=== PATIENT | female | born 1995 | race Caucasian/White ===

== ENCOUNTER 2021-01-23 02:09 | Emergency (ER) | payer SELFPAY ==
--- NOTE | ~2021-01-23 | XR_ITS ---
EXAMINATION: XR chest 2V DATE: 01/23/2021 03:22 INDICATION: Dizziness. TECHNIQUE: Frontal and lateral views of the chest were obtained. COMPARISON: None. FINDINGS: The chest demonstrates clear lungs without pneumonia, pleural effusion, or pneumothorax. Th e heart size is normal. There are changes of posterior fusion procedure in thoracolumbar spine. IMPRESSION: 1. No acute cardiopulmonary disease. Reviewed, dictated and finalized at location A. R EQUIPMENT INSTALLER
[2021-01-23 02:15] VITALS: BP 137/78; PULSE 119; RESP 14; O2SAT 100
[2021-01-23 02:22] VITALS: BP 137/78; PULSE 99; RESP 19; TEMP 36.7; O2SAT 100
--- NOTE | 2021-01-23 02:34 | ECG_ITS ---
Measurements Intervals [place] Rate: 104 P: 76 VA: 150 QRS: 5 QRSD: 101 T: 32 QT: 338 QTc: 446 Interpretive Statements SINUS TACHYCARDIA BORDERLINE ECG Electronically Signed On 01-23-2021 6:52:14 FLAP MAKER by Vaibhav Scanlon D.O.
--- NOTE | 2021-01-23 02:45 | ED.GENADULT ---
HPI - General Adult General Chief complaint: Alcohol Stated complaint: alcohol poisoning Time Seen by Provider: 01/23/21 02:33 Source: patient Mode of arrival: ambulatory Limitations: no limitations History of Present Illness HPI narrative: Patient is a 26-year-old female complaining of nausea and not feeling right , feeling anxious, an hour after smoking marijuana tonight. Patient states she usually smokes marijuana occasionally with no problems. Patient does admit to drinking alcohol last night. Patient denies any other drug use. Patient denies any headache, dizziness, speech or visual disturbance, weakness, numbness, chest pain, shortness of breath, abdominal pain, nausea, vomiting, diarrhea, fever or chills. Related Data Allergies Allergy/AdvReac Type Severity Reaction Status Date / Time No Known Allergies Allergy Verified 01/23/21 02:50 Review of Systems Review of Systems: All systems reviewed & are unremarkable except as noted in HPI and below Constitutional: Constitutional: Denies body ache(s), Denies chills, Denies excessive sweating, Denies fatigue, Denies fever(s), Denies headache(s), Denies lethargy, Denies malaise, Denies weakness and Denies weight loss Eyes: Eyes: Denies blurry vision, Denies change in vision and Denies loss of vision ENT: Denies dizziness, Denies ear discharge, Denies headache(s), Denies lip swelling, Denies epistaxis, Denies nasal congestion, Denies neck pain, Denies throat swelling and Denies tongue swelling Cardiovascular: Cardiovascular: Denies chest pain, Denies chest pain at rest, Denies chest pain with activity, Denies diaphoresis, Denies rapid heart rate, Denies edema, Denies irregular heart rhythm, Denies lightheadedness, Denies palpitations, Denies dyspnea and Denies dyspnea on exertion Respiratory: Respiratory: Denies chest congestion, Denies cough, Denies hemoptysis, Denies dyspnea and Denies dyspnea on exertion Gastrointestinal: Gastrointestinal: Denies abdominal pain, Denies melena, Denies hematochezia, Denies diarrhea, Denies vomiting and Denies hematemesis Musculoskeletal: Musculoskeletal: Denies abnormal gait, Denies deformity, Denies joint swelling, Denies limited range of motion, Denies neck pain and Denies numbness Neurologic: Denies Abnormal speech present, Denies abnormal gait, Denies confusion, Denies dizziness, Denies headache(s), Denies focal weakness, Denies loss of vision, Denies numbness, Denies Other visual disturbances, Denies Sensory deficit (Neuro) and Denies weakness Psychiatric: Psychiatric: Denies confusion, Denies depression, Denies auditory hallucinations, Denies homicidal ideation and Denies suicidal ideation Endocrine: Endocrine: Denies cold intolerance, Denies excessive sweating, Denies fatigue, Denies heat intolerance and Denies palpitations Hematologic/Lymphatic: Hematologic/Lymphatic: Denies easy bleeding and Denies easy bruising Allergic/Immunologic: Allergic/Immunologic: Denies lip swelling, Denies throat swelling and Denies tongue swelling [facility] Social History Social History Gender identity (if verbalized by the patient): Female Exam Const: General: cooperative, healthy appearing, comfortable, no acute distress, well developed, alert and awake; No confusion Orientation/consciousness: oriented to person, oriented to place, oriented to time, patient oriented x3 and No confusion Limitations: no limitations HENMT: Head: normal to inspection, normocephalic and atraumatic Ears: hearing grossly normal bilaterally, TM normal on the right and TM normal on the left General nose exam: Normal external nose present, Normal nares present and No nasal discharge present Face and sinus: normal facial exam Mouth: Yes Normal oral and palatal mucosa present, Yes lip normal, Yes tongue normal and Yes oropharynx normal Throat: posterior oropharynx normal, tonsils normal and uvula midline Eyes: General: appeara
[2021-01-23 02:50] LABS: Basophils Percent Auto 0.3 % (0.2-1.2); Eosinophils Percent Auto 0.5 % (0-4.4); Hematocrit 38.2 % (37.0-47.0); Hemoglobin 12.7 g/dL (12.0-15.0); Immature Granulocyte Absolute 0.01 K/mm3 (0.00-0.031); Immature Granulocyte Percent A 0.1 % (0-0.5); Lymphocytes Absolute Auto 2.44 K/mm3 (0.9-3.2); Lymphocytes Percent Auto 33.1 % (18.3-44.2); Mean Corpuscular HGB Conc 33.2 g/dl (32-36); Mean Corpuscular Volume 90.3 fl (80-100); Mean Platelet Volume 9.1 fl (7.4-10.4); Monocytes Absolute Auto 0.9 K/mm3 (0.1-0.6); Monocytes Percent Auto 11.8 % (2.6-8.5); Neutrophils Percent Auto 54.2 % (45.5-73.1); Platelet Count Result 300 k/mm3 (150-375); Red Blood Count 4.23 M/mm3 (4.2-5.4); Red Cell Distribution Width 13.6 % (11.5-14.5); White Blood Count 7.4 K/mm3 (4.5-10.0)
[2021-01-23 03:04] VITALS: BP 115/71; PULSE 104; RESP 20; O2SAT 97
[2021-01-23 03:28] LABS: Alanine Aminotransferase 13 U/L (4-35); Albumin Level 4.1 g/dL (3.5-5.1); Alkaline Phosphatase 40 U/L (38-126); Anion Gap 6 mmol/L (8-16); Aspartate Amino Transferase 22 U/L (14-36); Bilirubin,Total 0.4 mg/dL (0.2-1.3); Blood Urea Nitrogen 18 mg/dL (7-17); Calcium 8.8 mg/dL (8.4-10.2); Carbon Dioxide 26 mmol/L (22-30); Chloride 104 mmol/L (98-107); Estimated Glomerular Filt Rate > 60; Glucose 116 mg/dL (65-105); Potassium 3.1 mmol/L (3.4-5.0); Sodium 136 mmol/L (137-145)
--- NOTE | 2021-01-23 03:39 | PC.NURSE ---
Pt. states she is on her period and does not have a tampon in. Pt. refusing to provided urine sample.
[2021-01-23 04:00] VITALS: BP 110/81; PULSE 87; RESP 19; O2SAT 97
[2021-01-23] MEDS: POTASSIUM CHLORIDE 20 MEQ PACKET (FOR LIQUID) 40 MEQ PO (04:00)
== END 2021-01-23 04:00 | disposition home or self-care (01) ==
PROVIDERS: Emergency Provider Emergency Medicine; PCP Nurse Practitioner Family
DX: R11.0 Nausea (principal); Z72.89 Other problems related to lifestyle; F12.10 Cannabis abuse, uncomplicated; R00.0 Tachycardia, unspecified
CPT/HCPCS: 36415; 71046; 80053; 85025; 93005; 99283; A9270

== ENCOUNTER 2024-01-02 22:23 | Inpatient (IN) | payer SELFPAY ==
--- NOTE | ~2024-01-02 | XR_ITS ---
EXAMINATION: XR retrograde pyelo w/stent LT DATE: 01/03/2024 08:32 INDICATION: Left ureteral stone. TECHNIQUE: 37 intraoperative fluoroscopic views of the abdomen and pelvis were obtained. I was not pr esent. Fluoroscopy exposure time was 50 seconds. COMPARISON: CT abdomen and pelvis 01/03/2024 FINDINGS: The left-sided retrograde pyelogram demonstrates mild hydronephrosis. The final images demo nstrate a left internal ureteral stent in expected position. There are changes of posterior fusion pr ocedure in thoracic lumbar spine. IMPRESSION: 1. Mild left hydronephrosis. 2. Left internal ureteral stent in expected position. Reviewed, dictated and finalized at location A. R FORENSIC SPECIALIST
--- NOTE | ~2024-01-02 | CT_ITS ---
EXAMINATION: CT abdomen pelvis w con INDICATION: Left flank pain, known UTI TECHNIQUE: Computed tomographic images of the abdomen and pelvis were obtained after the administrati on of 100 cc of Omnipaque 350 intravenous contrast. The dose-length product (DLP) was 201.96 mGy-cm. Automated exposure control and iterative reconstruction technique were employed. COMPARISON: None available FINDINGS: Minimal dependent atelectasis is present in the lung bases. The heart size is normal. Strea k artifact from posterior thoracolumbar fusion slightly limits the examination. The liver, pancreas, gallbladder, and adrenal glands are normal. There is a 1.6 cm cyst of the spleen. There is a 5 mm x 8 mm stone of the proximal left ureter causing moderate left hydronephrosis. There is urothelial enhan cement of the left renal pelvis and proximal ureter. There is decreased enhancement of the left kidne y compared to the right. Hyperattenuating material in the right kidney appears to reflect a small lanny unt excreted contrast rather than nephrolithiasis. No pathologically enlarged abdominal or pelvic lym ph nodes are identified. No free intraperitoneal gas or evidence of bowel obstruction. IMPRESSION: 1. 8mm x 5 mm stone of the proximal left ureter causing moderate hydronephrosis. Urothelial enhanceme nt of the left renal pelvis and proximal ureter suggests superimposed infection. Decreased enhancemen t of the left kidney compared to the right could reflect pyelonephritis or be due to ureteral obstruc tion. Reviewed, dictated and finalized at location F. E ADJUSTER IMPRESSION: 1. 8mm x 5 mm stone of the proximal left ureter causing moderate hydronephrosis . Urothelial enhancement of the left renal pelvis and proximal ureter suggests superimposed infection. Decreased enhancement of the left kidney compared to th e right could reflect pyelonephritis or be due to ureteral obstruction.
[2024-01-02 22:49] VITALS: BP 122/85; PULSE 124; RESP 20; TEMP 36.9; O2SAT 100
[2024-01-03] VITALS (23 sets, daily range): BP systolic 68–132; BP diastolic 38–80; PULSE 80–138; RESP 16–26; TEMP 36.2–39.2; O2SAT 94–100
[2024-01-03 02:47] LABS: Basophils Percent Auto 0.2 % (0.2-1.2); Eosinophils Percent Auto 0.1 % (0-4.4); Hematocrit 39.8 % (37.0-47.0); Hemoglobin 12.7 g/dL (12.0-15.0); Immature Granulocyte Absolute 0.04 K/mm3 (0.00-0.031); Immature Granulocyte Percent A 0.3 % (0-0.5); Lymphocytes Absolute Auto 0.54 K/mm3 (0.9-3.2); Lymphocytes Percent Auto 4.6 % (18.3-44.2); Mean Corpuscular HGB Conc 31.9 g/dl (32-36); Mean Corpuscular Hemoglobin 28.9 pg (26-34); Mean Corpuscular Volume 90.7 fl (80-100); Mean Platelet Volume 9.3 fl (7.4-10.4); Monocytes Absolute Auto 1.5 K/mm3 (0.1-0.6); Monocytes Percent Auto 12.4 % (2.6-8.5); Neutrophils Absolute Auto 9.7 K/mm3 (1.3-6.7); Neutrophils Percent Auto 82.4 % (45.5-73.1); Platelet Count Result 257 k/mm3 (150-375); Red Blood Count 4.39 M/mm3 (4.2-5.4); Red Cell Distribution Width 13.1 % (11.5-14.5); White Blood Count 11.8 K/mm3 (4.5-10.0)
[2024-01-03 02:59] LABS: Alanine Aminotransferase 17 U/L (6-35); Alkaline Phosphatase 69 U/L (38-126); Anion Gap 20 mmol/L (8-16); Aspartate Amino Transferase 28 U/L (14-36); Bilirubin,Total 1.1 mg/dL (0.2-1.3); Blood Urea Nitrogen 18 mg/dL (7-17); Calcium 9.5 mg/dL (8.4-10.2); Carbon Dioxide 11 mmol/L (22-30); Chloride 100 mmol/L (98-107); Estimated CRCL calculation 44 ml/min; Estimated Glomerular Filt Rate 45; Glucose 88 mg/dL (65-110); Potassium 3.8 mmol/L (3.4-5.0); Sodium 131 mmol/L (137-145)
[2024-01-03 03:16] LABS: Appearance Urine Clear (Clear); Bacteria Urine None Seen /hpf; Bilirubin Urine 1+ (Negative); Blood Urine 3+ (Negative); Color Urine Dark Yellow (Yellow); Glucose Urine UA Negative (Negative); Ketones Urine 4+ mg/dL (Negative); Leukocyte Esterase Ur 2+ LEU/UL (Negative); Need Manual Microscopic Reviewed; Nitrate Urine Positive (Negative); Non Pathogenic Casts 0-2; Protein Urine 1+ mg/dL (Negative); RBC Urine 21-50 /hpf (0-2); Specific Grav Ur 1.022 (1.001-1.035); Squamous Epithelial Cell Urine None seen /hpf (Few); WBC Urine 51-100 /hpf
[2024-01-03 03:17] LABS: Add Urine Microscopic? YES
[2024-01-03] MEDS: ONDANSETRON INJ 4 MG/2 ML VIAL IV PUSH (03:22)
[2024-01-03] MEDS: SODIUM CHLORIDE 0.9% IV 1,000 ML 999 ML IV CONT ×3 (03:22→21:23)
[2024-01-03] MEDS: MORPHINE SULFATE (*CRX) 4 MG/ML INJ IV PUSH ×2 (03:22→04:29)
[2024-01-03] MEDS: PROCHLORPERAZINE EDISYLATE 10 MG/2 ML VIAL IV PUSH (04:29)
[2024-01-03] MEDS: diphenhydrAMINE HCl INJ 50 MG/ML VIAL IV PUSH (04:29)
--- NOTE | 2024-01-03 06:54 | ED.GENADULT ---
HPI - General Adult General Chief complaint: Abdominal Pain Stated complaint: left flank pain Time Seen by Provider: 01/03/24 02:41 History of Present Illness HPI narrative: patient with 8-year-old female presents emergency department with chief complaint of left flank pain left lower quadrant abdominal pain patient states been going on for 2 days she was told that she had a urinary tract infection and has had some nausea and vomiting patient states she is concerned that she may have a kidney stone. Related Data Allergies Allergy/AdvReac Type Severity Reaction Status Date / Time No Known Allergies Allergy Verified 01/02/24 22:24 Review of Systems Review of Systems: A 10 system review of systems was completed on the patient and is negative except for what is stated in the HPI. Nursing and ancillary documentation was reviewed. [facility] Social History Social History Gender identity (if verbalized by the patient): Female Exam Narrative: GENERAL: Well-appearing, well-nourished, and in Mild acute pain distress. HEAD: Normocephalic, atraumatic. EYES: PERRLA and EOMI. ENT: Nares clear, no rhinorrhea or epistaxis. Mucous membranes moist. NECK: Supple. CHEST: Clear to auscultation. No respiratory distress. HEART: Regular rate and rhythm. No murmur heard. Normal peripheral pulses. ABDOMEN: Soft, nontender, nondistended, normal active bowel sounds. EXTREMITIES: Normal range of motion. No edema. SKIN: Warm, dry, no rash. NEURO: No focal deficits. Alert and oriented x3. PSYCH: Normal mood and affect. Course Vital Signs Vital signs: Vital Signs Temperature 36.9 C 01/02/24 22:49 Pulse Rate 124 H 01/02/24 22:49 Respiratory Rate 20 01/02/24 22:49 Blood Pressure 122/85 01/02/24 22:49 Pulse Oximetry 100 01/02/24 22:49 Oxygen Delivery Room Air 01/02/24 22:49 Temperature 36.9 C 01/02/24 22:49 Pulse Rate 113 H 01/03/24 05:35 Respiratory Rate 20 01/03/24 05:35 Blood Pressure 113/60 01/03/24 05:35 Pulse Oximetry 96 01/03/24 05:35 Oxygen Delivery Room Air 01/02/24 22:49 Medical Decision Making [facility] Narrative Medical decision making narrative: differential diagnosis includes UTI pyelonephritis, obstructive stone, infected stone appendicitis diverticulitis laboratory studies were obtained showed a white count of 11.8 creatinine is 1.4 urinalysis shows 50-100 white blood cells 2+ leuks CT scans shows a 8 tube by 5 mm proximal stone on the left the case was discussed with hospitalist and Urology the patient was started on Rocephin the patient will be taken to the operating room for a stent Vital Signs Vital Signs: Vital Signs Temperature 36.9 C 01/02/24 22:49 Pulse Rate 124 H 01/02/24 22:49 Respiratory Rate 20 01/02/24 22:49 Blood Pressure 122/85 01/02/24 22:49 Pulse Oximetry 100 01/02/24 22:49 Oxygen Delivery Room Air 01/02/24 22:49 Temperature 36.9 C 01/02/24 22:49 Pulse Rate 113 H 01/03/24 05:35 Respiratory Rate 20 01/03/24 05:35 Blood Pressure 113/60 01/03/24 05:35 Pulse Oximetry 96 01/03/24 05:35 Oxygen Delivery Room Air 01/02/24 22:49 Lab Data 01/03/24 02:25 01/03/24 02:25 Labs: Lab Results 01/03/24 Range/Units 02:25 WBC 11.8 H (4.5-10.0) K/mm3 RBC 4.39 (4.2-5.4) M/mm3 Hgb 12.7 (12.0-15.0) g/dL Hct 39.8 (37.0-47.0) % MCV 90.7 (80-100) fl MCH 28.9 (26-34) pg MCHC 31.9 L (32-36) g/dl RDW 13.1 (11.5-14.5) % Plt Count 257 (150-375) k/mm3 MPV 9.3 (7.4-10.4) fl Immature Gran % (Auto) 0.3 (0-0.5) % Neut % (Auto) 82.4 H (45.5-73.1) % Lymph % (Auto) 4.6 L (18.3-44.2) % [place] % (Auto) 12.4 H (2.6-8.5) % Eos % (Auto) 0.1 (0-4.4) % Baso % (Auto) 0.2 (0.2-1.2) % Lymph # (Auto) 0.54 L (0.9-3.2) K/mm3 [place] # (Auto) 1.5 H (0.1-0.6) K/mm3 Eos # (Auto) 0.0 (0-0.3) K
--- NOTE | 2024-01-03 07:11 | WPDURCON ---
Assessment and Plan Assessment and plan (1) Left ureteral stone: Code(s): N20.1 - Calculus of ureter Status: Acute (2) Hydronephrosis concurrent with and due to calculi of kidney and ureter: Code(s): N13.2 - Hydronephrosis with renal and ureteral calculous obstruction Status: Acute (3) UTI (urinary tract infection): Qualifiers: Urinary tract infection type: acute cystitis Code(s): N39.0 - Urinary tract infection, site not specified Status: Acute Plan 28 yr old female with obstructing L proximal ureteral stone with hydro and UTI. Discussed proceeding to OR this AM for cystoscopy and left stent placement to alleviate the obstruction. I explained that the stent is not permanent and she will need definitive stone surgery with one of my [employer] partners in the next few weeks once infection resolves. She understands risk of stent placement this AM including but not limited to bleeding, infection, damage to the urinary tract, stent irritation, and risks of anesthesia. She will be admitted to hospitalist for IV antibiotics and supportive care. Urine and blood cultures are pending. Urology Consult Note HPI Date Seen: 01/03/24 Requesting Physician: Татьяна Landin MD Primary Care Provider: CORPORATE INVESTIGATOR PHYSICIAN Consult Narrative Narrative: Barbie Wise is a 28 year old female who presented to ER with 2 days of left flank pain with associated nausea and vomiting. Was diagnosed with UTI and had been started on macrobid. She has a history of stones, all of which have passed spontaneously. She denies any fevers, chills, or dysuria. She is unsure about hematuria since she is on her period. No FH of stones. CT in ER shows 8 mm left proximal ureteral stone with hydro and perinephric stranding and enhancement of the left collecting system. UA appears infected. Has been started on rocephin. Review of Systems Review of Systems: 12 point review of systems was obtained. All systems are negative other than as her HPI [facility] Social History Social History Gender identity (if verbalized by the patient): Female Meds Home Medications and Allergies Allergies Allergy/AdvReac Type Severity Reaction Status Date / Time No Known Allergies Allergy Verified 01/02/24 22:24 Vital Signs Vital Signs - 24 hr 01/02/24 22:49 02/10/24 02:15 01/03/24 02:16 Temperature 36.9 C Pulse Rate 124 H 119 H 113 H Respiratory Rate 20 19 22 H Blood Pressure 122/85 129/74 132/73 Pulse Oximetry 100 99 99 Oxygen Delivery Room Air 01/03/24 03:25 01/03/24 03:31 01/03/24 03:46 Temperature Pulse Rate 108 H 105 H 111 H Respiratory Rate 18 23 H 25 H Blood Pressure 130/80 121/78 128/79 Pulse Oximetry 99 97 100 Oxygen Delivery 01/03/24 05:35 Temperature Pulse Rate 113 H Respiratory Rate 20 Blood Pressure 113/60 Pulse Oximetry 96 Oxygen Delivery Exam Narrative: 28 year old female in NAD Const: Other: NAD, A&O x 3, well nourished HENMT: Face/Nose/Sinus: Normal nares present Other: NC/AT; EOMI; hearing intact Eyes: EOM: EOMs intact bilaterally Neck: Neck: supple Resp: Effort & Inspection: normal respiratory effort Cardio: Rate: tachycardic GI: GI Palp: Yes Soft to palpation : Other: L CVAT tenderness Skin: General skin exam: normal color Neuro: General: gait normal Speech: normal speech Motor exam (neuro): 5/5 motor strength present throughout Extrem: General: normal to inspection Psych: Speech and movement: Normal speech and movement present Affect: normal affect Results Labs 01/03/24 02:25 01/03/24 02:25 Labs: Short CBC 01/03/24 Range/Units 02:25 WBC 11.8 H (4.5-10.0) K/mm3 Hgb 12.7 (12.0-15.0) g/dL Hct 39.8 (37.0-47.0) % Plt Count 257 (150-375) k/mm3 BMP 01/03/24 02:25 Sodium 131 L
[2024-01-03] MEDS: ACETAMINOPHEN 500 MG TABLET 1000 MG PO ×3 (07:33→22:53)
[2024-01-03] MEDS: LACTATED RINGERS 1,000 ML 30 ML IV CONT (07:53)
--- NOTE | 2024-01-03 07:55 | WPDANESEPPF ---
Anes - Initial Pre Proc Eval Procedure: Operation Date: 01/03/24 08:30 Proposed Procedures p Cystoscopy, Left Stent Placement(Left) - Татьяна Landin MD Date/Time: 01/03/24 07:55 Surgeon: Татьяна Landin MD Pre Op Diagnosis: left flank pain Patient Data Age: 28 Gender: F Height: 1.63 m Weight: 50.4 kg Last Vital Signs Temp 39.0 C H 01/03/24 07:33 Pulse 80 01/03/24 07:35 Resp 17 01/03/24 07:35 BP 128/61 01/03/24 07:35 Pulse Ox 99 01/03/24 07:35 O2 Del Method Room Air 01/02/24 22:49 Allergies Allergy/AdvReac Type Severity Reaction Status Date / Time No Known Allergies Allergy Verified 01/02/24 22:24 Laboratory Tests 01/03/24 02:25 WBC 11.8 H K/mm3 (4.5-10.0) RBC 4.39 M/mm3 (4.2-5.4) Hgb 12.7 g/dL (12.0-15.0) Hct 39.8 % (37.0-47.0) MCV 90.7 fl (80-100) MCH 28.9 pg (26-34) MCHC 31.9 L g/dl (32-36) RDW 13.1 % (11.5-14.5) Plt Count 257 k/mm3 (150-375) MPV 9.3 fl (7.4-10.4) Immature Gran % (Auto) 0.3 % (0-0.5) Neut % (Auto) 82.4 H % (45.5-73.1) Lymph % (Auto) 4.6 L % (18.3-44.2) [place] % (Auto) 12.4 H % (2.6-8.5) Eos % (Auto) 0.1 % (0-4.4) Baso % (Auto) 0.2 % (0.2-1.2) Lymph # (Auto) 0.54 L K/mm3 (0.9-3.2) [place] # (Auto) 1.5 H K/mm3 (0.1-0.6) Eos # (Auto) 0.0 K/mm3 (0-0.3) Baso # (Auto) 0.0 K/mm3 (0.0-0.1) Abs Immat Gran (auto) 0.04 H K/mm3 (0.00-0.031) Absolute Neuts (auto) 9.7 H K/mm3 (1.3-6.7) Absolute Nucleated RBC 0.0 K/mm3 (0.0-0.012) Nucleated RBC % 0.0 % (0.0-0.2) Sodium 131 L mmol/L (137-145) Potassium 3.8 mmol/L (3.4-5.0) Chloride 100 mmol/L (98-107) Carbon Dioxide 11 L mmol/L (22-30) Anion Gap 20 H mmol/L (8-16) BUN 18 H mg/dL (7-17) Creatinine 1.40 H mg/dL (0.7-1.0) Estim Creat Clear Calc 44 ml/min Estimated GFR 45 L (59 - ) Glucose 88 mg/dL (65-110) Calcium 9.5 mg/dL (8.4-10.2) Total Bilirubin 1.1 mg/dL (0.2-1.3) AST 28 U/L (14-36) ALT 17 U/L (6-35) Alkaline Phosphatase 69 U/L (38-126) Total Protein 9.0 H g/dL (6.3-8.2) Albumin 5.0 g/dL (3.5-5.1) Urine Color Dark yellow (Yellow) Urine Appearance Clear (Clear) Urine pH 5.0 (5.0-9.0) Ur Specific [place] 1.022 (1.001-1.035) Urine Protein 1+ H mg/dL (Negative) Urine Glucose (UA) Negative mg/dL (Negative) Urine Ketones 4+ H mg/dL (Negative) Ur Blood (Man) 3+ H (Negative) Urine Nitrate Positive H (Negative) Urine Bilirubin 1+ H (Negative) Urine Urobilinogen 1.0 mg/dL (<2.0) Add Ur Microanalysis Reviewed Leukocyte Esterase Rfl 2+ H ANNA MARIE/UL (Negative) Urine RBC 21-50 H /hpf (0-2) Urine WBC 51-100 H /hpf Ur Squamous Epith Cells None seen /hpf (Few) Urine Bacteria None seen /hpf Urine Casts 0-2 Patient hx anesthesia problems: none Family hx anesthesia problems: none Results Review: All pre-operative results and documents have been reviewed as part of the pre-operative evaluation. [facility] Past Medical History Medical History Smoker Surgical History Surgical History (Updated 01/03/24 @ 07:55 by Maurice Tejeda MD) History of lumbar surgery Social History Social History Gender identity (if verbalized by the patient): Female Anes - Eval Final PreProcedure Day of Procedure 01/03/24 07:55 Patient weight: thin Heart: regular rate and rhythm Lungs: clear to auscultation Airway: Mallampati scale class II Neurological: alert and oriented Last oral intake: >/= 8 hours ASA classification: II Emergent: no Anesthetic plan: proceed Anesthesia type and monitoring: general LMA and standard monitoring Results Review: All pre-operative results and documents have been reviewed as part of the
--- NOTE | 2024-01-03 08:36 | W.PM.PROC2 ---
Procedure Note - Detailed Date of Procedure 01/03/24 Pre-op Diagnosis left proximal ureteral stone with hydronephrosis and UTI Post-op Diagnosis Same Procedure Performed cystoscopy, left retrograde pyelogram and placement of a left 4.8cm VL stent Surgeon Татьяна Landin MD Anesthesia General and Local Findings 8 mm left proximal ureteral stone. Purulent drainage from the left kidney Description of Procedure Patient was correctly identified and informed consent was obtained. She was brought to the OR and a formal timeout was performed. General anesthesia was induced. She had already received intravenous antibiotics and was not due for redosing. She was placed in the dorsal lithotomy position, prepped and draped in a sterile fashion. A rigid cystoscope was inserted through the urethra into the bladder. The bladder was examined in a systematic fashion. There were no masses, stones or tumors. The left UO was intubated with a sensor wire. I advanced the wire up into the left kidney. I then advanced the 8fr coaxial dilator over the wire into the left kidney. There was a hydronephrotic drip of purulent fluid which was sent off as left renal pelvis urine for culture. A gentle retrograde pyelogram was performed. She was noted to have mild left hydronephrosis. A 4.8cm variable length stent was placed under a combination of fluoroscopic guidance and direct vision with a curl in the upper pole of the left kidney and another curl in the bladder. Due to the degree of infection, I elected to place a 16 fr samson catheter. She was then awaken and taken to the recovery room in a stable condition Implants 4.8 cm VL JJ stent Estimated Blood Loss 5 Drains Yes (samson catheter) Pathology Other (left renal pelvis urine for culture) Condition Stable Disposition PACU
[2024-01-03 09:19] LABS: Appearance Urine Turbid (Clear); Blood Urine 3+ (Negative); Glucose Urine UA Trace mg/dL (Negative); Ketones Urine 1+ mg/dL (Negative); Protein Urine 3+ mg/dL (Negative)
[2024-01-03 09:20] LABS: Add Urine Microscopic? YES; Bilirubin Urine 2+ (Negative); Color Urine Dark Yellow (Yellow); Leukocyte Esterase Ur 3+ LEU/UL (Negative); Nitrate Urine Positive (Negative)
[2024-01-03] MEDS: fentaNYL CITRATE INJ (*CRX) 100 MCG/2 ML VIAL 25 MCG IV PUSH (09:21)
[2024-01-03 09:28] LABS: RBC Urine 51-75 /hpf (0-2); WBC Clumps Urine Present /HPF; WBC Urine >100 /hpf
[2024-01-03 09:29] LABS: Bacteria Urine 2+ /hpf
[2024-01-03] MEDS: SODIUM CHLORIDE 0.9% IV 1,000 ML 125 ML IV CONT ×3 (09:57→20:49)
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
--- NOTE | 2024-01-03 20:06 | P.PNCROSS_ITS ---
Event Note Event Note Event Note: 01/03/2024 19:55 Subjective: Nurse contacted me with a change in patient status; patient with uncontrollable shivers. Chart reviewed. Admitted through ED overnight with obstructing ureteral stone s/p cysto with stent placement. Objective: Temperature 102, pulse 124, respiratory rate 20, blood pressure 68/43. She is ill appearing. Shivering under blankets. Skin a little warm but not hot. Slightly diaphoretic. Tachycardic. Mildly tachypneic but lungs are clear to auscultation. Aprham draining dark yellow urine. Positive left sided CVA tenderness. Bowel sounds present. No edema. A&O. Assessment: Sepsis (hypotension, tachycardia, leukocytosis, YURIY) due to infected ureteral stone and left pyelonephritis. Plan: Broaden antibiotics to meropenem, pending urine and blood cultures. 2 liter bolus now. Re-evaluate thereafter. Critical Care Time Critical Care Time: Yes Total Critical Care Time: 40 Attestation: Due to a high probability of clinically significant, life threatening deterioration, the patient required my highest level of preparedness to intervene emergently and I personally spent this critical care time directly and personally managing the patient. This critical care time included obtaining a history; examining the patient; pulse oximetry; ordering and review of studies; arranging urgent treatment with development of a management plan; evaluation of patient's response to treatment; frequent reassessment; and discussions with o ther providers. It was exclusive of separately billable procedures and treating other patients and teaching time. Please see Assessment and Plan section and the rest of the note for further information on patient assessment and treatment.
[2024-01-03] MEDS: MEROPENEM 1 GM/NS 100 ML 1 GM/100 ML BAG IVPB (20:49)
[2024-01-03 20:51] LABS: Basophils Percent Auto 0.4 % (0.2-1.2); Eosinophils Percent Auto 0.5 % (0-4.4); Hematocrit 31.4 % (37.0-47.0); Immature Granulocyte Absolute 0.03 K/mm3 (0.00-0.031); Immature Granulocyte Percent A 0.4 % (0-0.5); Lymphocytes Percent Auto 3.7 % (18.3-44.2); Mean Corpuscular HGB Conc 31.8 g/dl (32-36); Mean Corpuscular Hemoglobin 29.2 pg (26-34); Mean Corpuscular Volume 91.5 fl (80-100); Mean Platelet Volume 9.1 fl (7.4-10.4); Monocytes Absolute Auto 0.7 K/mm3 (0.1-0.6); Monocytes Percent Auto 8.5 % (2.6-8.5); Neutrophils Absolute Auto 7.1 K/mm3 (1.3-6.7); Neutrophils Percent Auto 86.5 % (45.5-73.1); Platelet Count Result 149 k/mm3 (150-375); Red Blood Count 3.43 M/mm3 (4.2-5.4); Red Cell Distribution Width 13.2 % (11.5-14.5); White Blood Count 8.2 K/mm3 (4.5-10.0)
[2024-01-03 21:11] LABS: Anisocytosis 1+ (NORMAL); Hypochromasia 1+ (NORMAL); Large Platelets Present; Ovalocytes 1+ (NORMAL); Platelet Estimate Adequate (Adequate); Schistocytes None Seen (NORMAL)
[2024-01-03 21:12] LABS: Lactic Acid Reflex 1.5 mmol/L (0.7-2.0)
[2024-01-03 21:13] LABS: Anion Gap 5 mmol/L (8-16); Blood Urea Nitrogen 13 mg/dL (7-17); Calcium 7.8 mg/dL (8.4-10.2); Carbon Dioxide 17 mmol/L (22-30); Chloride 109 mmol/L (98-107); Estimated CRCL calculation 66 ml/min; Estimated Glomerular Filt Rate > 60; Glucose 144 mg/dL (65-110); Magnesium 1.6 mg/dL (1.6-2.3); Potassium 3.9 mmol/L (3.4-5.0); Sodium 131 mmol/L (137-145)
--- NOTE | 2024-01-03 22:46 | ECG_ITS ---
Measurements Intervals [place] Rate: 125 P: 79 AL: 139 QRS: 3 QRSD: 101 T: 63 QT: 336 QTc: 485 Interpretive Statements SINUS TACHYCARDIA NONSPECIFIC T-WAVE ABNORMALITY ABNORMAL ECG COMPARED TO ECG 01/23/2021 02:44:31 T-WAVE ABNORMALITY NOW PRESENT Electronically Signed On 01-04-2024 8:20:20 SWEATER OPERATOR by Carlos Henderson M.D.
[2024-01-03] MEDS: LACTATED RINGERS 1,000 ML 999 ML IV CONT (22:55)
[2024-01-04] VITALS (16 sets, daily range): BP systolic 101–117; BP diastolic 48–82; PULSE 86–126; RESP 14–30; TEMP 36.3–39.2; O2SAT 90–99
[2024-01-04] MEDS: LACTATED RINGERS 1,000 ML 999 ML IV CONT
[2024-01-04] MEDS: LACTATED RINGERS 1,000 ML 100 ML IV CONT ×3 (00:01→21:37)
[2024-01-04] MEDS: IBUPROFEN IV 400 MG in SODIUM CHLORIDE 0.9% IV 100 ML 200 MG IVPB (00:18)
[2024-01-04 05:50] LABS: Hematocrit 30.4 % (37.0-47.0); Hemoglobin 10.1 g/dL (12.0-15.0); Mean Corpuscular HGB Conc 33.2 g/dl (32-36); Mean Corpuscular Hemoglobin 29.4 pg (26-34); Mean Corpuscular Volume 88.6 fl (80-100); Mean Platelet Volume 9.2 fl (7.4-10.4); Platelet Count Result 162 k/mm3 (150-375); Red Blood Count 3.43 M/mm3 (4.2-5.4); Red Cell Distribution Width 13.2 % (11.5-14.5); White Blood Count 5.9 K/mm3 (4.5-10.0)
[2024-01-04] MEDS: MEROPENEM 1 GM/NS 100 ML 1 GM/100 ML BAG IVPB ×3 (06:05→21:41)
[2024-01-04 06:21] LABS: Anion Gap 4 mmol/L (8-16); Blood Urea Nitrogen 11 mg/dL (7-17); Calcium 7.5 mg/dL (8.4-10.2); Carbon Dioxide 19 mmol/L (22-30); Chloride 109 mmol/L (98-107); Estimated CRCL calculation 80 ml/min; Estimated Glomerular Filt Rate > 60; Glucose 109 mg/dL (65-110); Potassium 3.3 mmol/L (3.4-5.0); Sodium 132 mmol/L (137-145)
[2024-01-04] MEDS: ONDANSETRON INJ 4 MG/2 ML VIAL IV PUSH (08:13)
--- NOTE | 2024-01-04 10:14 | WPDUROPN2 ---
Progress Note: A&P Assessment and Plan (1) Sepsis: Qualifiers: Sepsis type: sepsis due to unspecified organism Sepsis acute organ dysfunction status: without acute organ dysfunction Qualified Code(s): A41.9 - Sepsis, unspecified organism Code(s): A41.9 - Sepsis, unspecified organism Status: Acute (2) Hydronephrosis concurrent with and due to calculi of kidney and ureter: Code(s): N13.2 - Hydronephrosis with renal and ureteral calculous obstruction Status: Acute (3) Left ureteral stone: Code(s): N20.1 - Calculus of ureter Status: Acute Plan POD#1 s/p L stent placement admitted with urosepsis and obstructing L prox ureteral stone - continue meropenem; blood cultures x 2 with GNR- pending sensitivities - continue samson for now in setting of sepsis to maximize urine drainage - supportive care - will need definitive stone surgery with one of my [facility] partners in a few wks once infection resolves Subjective Subjective Date/Time Seen: 01/04/24 10:14 Interval history: Has issues with fevers overnight. Hospitalist gave her fluid bolus and broadened her abx to meropenem. States she is feeling better this AM. No flank pain. Mild SP pain. Review of Systems Review of Systems: 12 point review of systems was obtained. All systems are negative other than as her HPI Exam Narrative: 28 yr old female currently in NAD Const: General: comfortable and no acute distress HENMT: Face/Nose/Sinus: Normal nares present Eyes: General: appearance normal, both eyes and all related structures Resp: Effort & Inspection: normal respiratory effort GI: GI Palp: Yes Soft to palpation Urinary Catheter: Urinary Catheter: patent and draining and urine clear Objective Data Vital Signs Vital Signs: Vital Signs - 24 hr 01/03/24 10:16 01/03/24 11:10 01/03/24 12:10 Temperature 37.1 C 36.7 C 36.2 C L Pulse Rate 129 H 116 H 115 H Respiratory Rate 20 16 20 Blood Pressure 103/42 L 117/59 L 107/63 Pulse Oximetry 96 97 98 Oxygen Delivery 01/03/24 13:36 01/03/24 16:26 01/03/24 20:00 Temperature 36.7 C Pulse Rate 104 H Respiratory Rate 20 Blood Pressure 94/38 L Pulse Oximetry 98 96 Oxygen Delivery Room Air Room Air 01/03/24 20:00 01/03/24 22:53 01/03/24 22:59 Temperature 37.2 C 38.8 C H 38.8 C H Pulse Rate 124 H 138 H Respiratory Rate 20 20 Blood Pressure 68/43 L 105/39 L Pulse Oximetry 99 Oxygen Delivery 01/03/24 23:59 01/04/24 00:18 01/04/24 00:00 Temperature 39.2 C H 39.2 C H Pulse Rate 126 H Respiratory Rate Blood Pressure Pulse Oximetry Oxygen Delivery 01/04/24 00:58 01/04/24 00:00 01/04/24 04:00 Temperature 37.0 C 37.5 C Pulse Rate 120 H 86 Respiratory Rate 18 Blood Pressure 105/48 L Pulse Oximetry 90 Oxygen Delivery 01/04/24 04:00 01/04/24 07:59 Temperature 36.3 C L 36.8 C Pulse Rate 88 92 Respiratory Rate 14 24 H Blood Pressure 105/62 101/56 L Pulse Oximetry 92 98 Oxygen Delivery Intake/Output Intake/Output: Intake & Output 01/01/24 01/02/24 01/03/24 01/04/24 23:59 23:59 23:59 23:59 Intake Total 4060 100 Output Total 445 1300 Balance 3615 -1200 Meds/Results Medications: Active Medications Generic Name Dose Route Start Last Admin Trade Name Freq PRN Reason Stop Dose Admin Acetaminophen 1,000 mg 01/03/24 10:15 01/03/24 22:53 Acetaminophen 500 Mg Tablet PO 1,000 mg Q6H PRN Administration Mild Pain (1-3) or Fever Lactated Ringer's 1,000 mls @ 100 mls/hr 01/03/24 22:50 01/04/24 00:01 Lr - Lactated Ringers Iv IV CONT 100 mls/hr .Q10H BRANDO Administration Meropenem 1 gm in 100 mls @ 200 mls/hr 01/04/24 06:00 01/04/24 06:05 IVPB 200 mls/hr Q8HR BRANDO Administration Morphine Sulfate 4 mg 01/03/24 07:05 Morphine Sulfate (*Crx) 4 Mg/Ml Inj IV PUSH Q2H PRN Pain Rated 7-10 Ondansetron HCl 4 mg 01/03/24 07:05 0
--- NOTE | 2024-01-04 10:21 | P.PNIM_ITS ---
Progress Note: A&P Assessment and Plan (1) Sepsis: Qualifiers: Sepsis type: sepsis due to unspecified organism Sepsis acute organ dysfunction status: without acute organ dysfunction Qualified Code(s): A41.9 - Sepsis, unspecified organism Code(s): A41.9 - Sepsis, unspecified organism Status: Acute Assessment and Plan: * Not meeting septic shock * As evidenced by febrile to 102.2, tachycardic in the 120s, known source of infection being urine. Lactic acid was not performed upon patient's arrival, in treatment has already begun. * Will continue with IV antibiotics, IV hydration which she received 2 L in emergency room and will continue to monitor patient's overall status. * Sepsis caused secondary to acute dilated Pyelitis/UTI with evidence of hydronephrosis secondary to ureteral calculus obstruction. * 01/04/2024: Patient with short time frame of meeting septic shock last evening. Blood pressure dropped to 60s over 30s. She was able to rebound with IV fluid boluses. Continue changed antibiotic from Rocephin to meropenem to afford broader coverage. Continue IV fluids. See problem 2. For bacteremia. Will continue to monitor this patient her condition is currently guarded. (2) Bacteremia: Code(s): R78.81 - Bacteremia Status: Acute Assessment and Plan: * Blood cultures, 4/4 bottles growing Gram-negative bacilli. * Continue meropenem pending culture results and sensitivity. * Patient will need prolonged course of antibiotics. (3) Hydronephrosis concurrent with and due to calculi of kidney and ureter: Code(s): N13.2 - Hydronephrosis with renal and ureteral calculous obstruction Status: Acute Assessment and Plan: * As evidence prior CT scan demonstrating 8 mm proximal left ureteral stone * Status post cystoscopy with left retrograde pyelogram and placement of stent by Dr. Landin * Continue IV antibiotics of Rocephin 1 g Q 24 hours * Continue IV fluids of normal saline at 125 mL/hour * Continue to monitor results of cultures of blood and urine obtained both externally as well as intraoperatively * P.r.n. pain meds * P.r.n. antiemetics * P.r.n. Tylenol * Continue to monitor patient with trending labs and vital signs. * 01/04/2024: As noted per urology note, patient will need definitive stone surgery with 1 of the [facility] urologist in a few weeks once her acute infection resolves. In the meantime we are continuing to treat her sepsis and bacteremia antibiotics in her wheezing urine cultures as well as blood culture identification and sensitivity. We will continue antiemetics, Tylenol and p ain meds needed (4) Pyelitis: Code(s): N12 - Tubulo-interstitial nephritis, not specified as acute or chronic Status: Acute Assessment and Plan: * See plan for number 2. (5) UTI (urinary tract infection): Qualifiers: Urinary tract infection type: acute cystitis Code(s): N39.0 - Urinary tract infection, site not specified Status: Acute Assessment and Plan: * See plan for number 2 (6) Left ureteral stone: Code(s): N20.1 - Calculus of ureter Status: Acute Assessment and Plan: * Status post cystoscopy with left retrograde pyelogram and placement and left sided stents * Parham catheter is in place draining serosanguineous urine * Urology following * 01/04/2024: Patient will need definitive stone removal treatment after acute infection has resolved. Time Spent With Patient Time with patient: 25 - 35 minutes Subjective Date/time seen: 01/04/24 7538 Int
--- NOTE | 2024-01-04 10:21 | PM.IMPN ---
Progress Note: A&P Assessment and Plan (1) Sepsis: Qualifiers: Sepsis type: sepsis due to unspecified organism Sepsis acute organ dysfunction status: without acute organ dysfunction Qualified Code(s): A41.9 - Sepsis, unspecified organism Code(s): A41.9 - Sepsis, unspecified organism Status: Acute Assessment and Plan: Not meeting septic shock As evidenced by febrile to 102.2, tachycardic in the 120s, known source of infection being urine. Lactic acid was not performed upon patient's arrival, in treatment has already begun. Will continue with IV antibiotics, IV hydration which she received 2 L in emergency room and will continue to monitor patient's overall status. Sepsis caused secondary to acute dilated Pyelitis/UTI with evidence of hydronephrosis secondary to ureteral calculus obstruction. 01/04/2024: Patient with short time frame of meeting septic shock last evening. Blood pressure dropped to 60s over 30s. She was able to rebound with IV fluid boluses. Continue changed antibiotic from Rocephin to meropenem to afford broader coverage. Continue IV fluids. See problem 2. For bacteremia. Will continue to monitor this patient her condition is currently guarded. (2) Bacteremia: Code(s): R78.81 - Bacteremia Status: Acute Assessment and Plan: Blood cultures, 4/4 bottles growing Gram-negative bacilli. Continue meropenem pending culture results and sensitivity. Patient will need prolonged course of antibiotics. (3) Hydronephrosis concurrent with and due to calculi of kidney and ureter: Code(s): N13.2 - Hydronephrosis with renal and ureteral calculous obstruction Status: Acute Assessment and Plan: As evidence prior CT scan demonstrating 8 mm proximal left ureteral stone Status post cystoscopy with left retrograde pyelogram and placement of stent by Dr. Landin Continue IV antibiotics of Rocephin 1 g Q 24 hours Continue IV fluids of normal saline at 125 mL/hour Continue to monitor results of cultures of blood and urine obtained both externally as well as intraoperatively P.r.n. pain meds P.r.n. antiemetics P.r.n. Tylenol Continue to monitor patient with trending labs and vital signs. 01/04/2024: As noted per urology note, patient will need definitive stone surgery with 1 of the [facility] urologist in a few weeks once her acute infection resolves. In the meantime we are continuing to treat her sepsis and bacteremia antibiotics in her wheezing urine cultures as well as blood culture identification and sensitivity. We will continue antiemetics, Tylenol and pain meds needed (4) Pyelitis: Code(s): N12 - Tubulo-interstitial nephritis, not specified as acute or chronic Status: Acute Assessment and Plan: See plan for number 2. (5) UTI (urinary tract infection): Qualifiers: Urinary tract infection type: acute cystitis Code(s): N39.0 - Urinary tract infection, site not specified Status: Acute Assessment and Plan: See plan for number 2 (6) Left ureteral stone: Code(s): N20.1 - Calculus of ureter Status: Acute Assessment and Plan: Status post cystoscopy with left retrograde pyelogram and placement and left sided stents Parham catheter is in place draining serosanguineous urine Urology following 01/04/2024: Patient will need definitive stone removal treatment after acute infection has resolved. Time Spent With Patient Time with patient: 25 - 35 minutes Subjective Date/time seen: 01/04/24 0820 Interval history: This patient was examined at the bedside today in interval assessment after undergoing cystoscopy with retrograde exam yesterday by urology in the setting of a left-sided obstructing stone. Patient was admitted to the floor postprocedure with Parham catheter in place and meeting sepsis criteria. Throughout the evening patient continued to have febrile episodes and at 1 point develop
[2024-01-04] MEDS: ACETAMINOPHEN 500 MG TABLET 1000 MG PO ×2 (11:50→22:13)
[2024-01-04] MEDS: guaiFENesin/DEXTROMETHORPHAN 10 ML UDC 5 ML PO (22:13)
[2024-01-04] MEDS: MELATONIN 5 MG TABLET PO (23:00)
[2024-01-04] MEDS: IBUPROFEN 600 MG TABLET PO (23:13)
[2024-01-05] VITALS (9 sets, daily range): BP systolic 107–130; BP diastolic 61–78; PULSE 66–100; RESP 16–20; TEMP 36.4–37.1; O2SAT 92–96
[2024-01-05 05:42] LABS: Basophils Percent Auto 0.2 % (0.2-1.2); Eosinophils Absolute Auto 0.1 K/mm3 (0-0.3); Eosinophils Percent Auto 1.9 % (0-4.4); Hematocrit 30.2 % (37.0-47.0); Hemoglobin 9.8 g/dL (12.0-15.0); Immature Granulocyte Absolute 0.01 K/mm3 (0.00-0.031); Immature Granulocyte Percent A 0.2 % (0-0.5); Lymphocytes Absolute Auto 0.72 K/mm3 (0.9-3.2); Lymphocytes Percent Auto 17.5 % (18.3-44.2); Mean Corpuscular HGB Conc 32.5 g/dl (32-36); Mean Corpuscular Hemoglobin 28.9 pg (26-34); Mean Corpuscular Volume 89.1 fl (80-100); Mean Platelet Volume 9.9 fl (7.4-10.4); Monocytes Absolute Auto 0.6 K/mm3 (0.1-0.6); Monocytes Percent Auto 13.8 % (2.6-8.5); Neutrophils Absolute Auto 2.7 K/mm3 (1.3-6.7); Neutrophils Percent Auto 66.4 % (45.5-73.1); Platelet Count Result 175 k/mm3 (150-375); Red Blood Count 3.39 M/mm3 (4.2-5.4); Red Cell Distribution Width 13.2 % (11.5-14.5); White Blood Count 4.1 K/mm3 (4.5-10.0)
[2024-01-05 05:54] LABS: Alanine Aminotransferase 20 U/L (6-35); Albumin Level 2.4 g/dL (3.5-5.1); Alkaline Phosphatase 63 U/L (38-126); Anion Gap 4 mmol/L (8-16); Aspartate Amino Transferase 28 U/L (14-36); Bilirubin,Total 0.6 mg/dL (0.2-1.3); Blood Urea Nitrogen 7 mg/dL (7-17); Calcium 7.8 mg/dL (8.4-10.2); Carbon Dioxide 23 mmol/L (22-30); Chloride 106 mmol/L (98-107); Estimated CRCL calculation 91 ml/min; Estimated Glomerular Filt Rate > 60; Glucose 99 mg/dL (65-110); Magnesium 1.6 mg/dL (1.6-2.3); Potassium 2.9 mmol/L (3.4-5.0); Sodium 133 mmol/L (137-145)
[2024-01-05] MEDS: MEROPENEM 1 GM/NS 100 ML 1 GM/100 ML BAG IVPB ×3 (05:58→21:20)
--- NOTE | 2024-01-05 08:36 | P.PNIM_ITS ---
Progress Note: A&P Assessment and Plan (1) Sepsis: Qualifiers: Sepsis acute organ dysfunction status: without acute organ dysfunction Sepsis type: sepsis due to unspecified organism Qualified Code(s): A41.9 - S epsis, unspecified organism Code(s): A41.9 - Sepsis, unspecified organism Status: Acute Assessment and Plan: 01/03/24: * Not meeting septic shock * As evidenced by febrile to 102.2, tachycardic in the 120s, known source of infection being urine. Lactic acid was not performed upon patient's arrival, in treatment has already begun. * Will continue with IV antibiotics, IV hydration which she received 2 L in emergency room and will continue to monitor patient's overall status. * Sepsis caused secondary to acute dilated Pyelitis/UTI with evidence of hydronephrosis secondary to ureteral calculus obstruction. 01/04/2024: * Patient with short time frame of meeting septic shock last evening. Blood pressure dropped to 60s over 30s. She was able to rebound with IV fluid boluses. Continue changed antibiotic from Rocephin to meropenem to afford broader coverage. Continue IV fluids. See problem 2. For bacteremia. Will continue to monitor this patient her condition is currently guarded. 01/05/24: * Vital signs are stable today she is afebrile, currently on room air. * Continue meropenem * Blood culture showing Gram-negative bacilli on preliminary read * Will repeat blood cultures today * Urine culture showing E coli on preliminary read, awaiting sensitivities (2) Bacteremia: Code(s): R78.81 - Bacteremia Status: Acute Assessment and Plan: 01/04/24: * Blood cultures, 4/4 bottles growing Gram-negative bacilli. * Continue meropenem pending culture results and sensitivity. * Patient will need prolonged course of antibiotics. 01/05/24: * Blood culture showing Gram-negative bacilli on preliminary read * Will obtain other set of blood cultures today * Continue IV antibiotics (3) Hydronephrosis concurrent with and due to calculi of kidney and ureter: Code(s): N13.2 - Hydronephrosis with renal and ureteral calculous obstruction Status: Acute Assessment and Plan: 01/04/24: * As evidence prior CT scan demonstrating 8 mm proximal left ureteral stone * Status post cystoscopy with left retrograde pyelogram and placement of stent by Dr. Landin * Continue IV antibiotics of Rocephin 1 g Q 24 hours * Continue IV fluids of normal saline at 125 mL/hour * Continue to monitor results of cultures of blood and urine obtained both externally as well as intraoperatively * P.r.n. pain meds * P.r.n. antiemetics * P.r.n. Tylenol * Continue to monitor patient with trending labs and vital signs. 01/04/2024: * As noted per urology note, patient will need definitive stone surgery with 1 of the [facility] urologist in a few weeks once her acute infection resolves. In the meantime we are continuing to treat her sepsis and bacteremia antibiotics in her wheezing urine cultures as well as blood culture identification and sensitivity. We will continue antiemetics, Tylenol and pain meds needed. 01/05/24: * Urology following * Awaiting culture results and sensitivities * Continue meropenem * Obtaining new blood cultures today (4) Pyelitis: Code(s): N12 - Tubulo-interstitial nephritis, not specified as acute or chronic Status: Acute Assessment and Plan: 01/04/24: * see above plan (5) UTI (urinary tract infection): Qualifiers: Urinary tract infection type: acute cystitis Code(s): N39.0 - Urinary tra
--- NOTE | 2024-01-05 08:36 | PM.IMPN ---
Progress Note: A&P Assessment and Plan (1) Sepsis: Qualifiers: Sepsis acute organ dysfunction status: without acute organ dysfunction Sepsis type: sepsis due to unspecified organism Qualified Code(s): A41.9 - Sepsis, unspecified organism Code(s): A41.9 - Sepsis, unspecified organism Status: Acute Assessment and Plan: 01/03/24: Not meeting septic shock As evidenced by febrile to 102.2, tachycardic in the 120s, known source of infection being urine. Lactic acid was not performed upon patient's arrival, in treatment has already begun. Will continue with IV antibiotics, IV hydration which she received 2 L in emergency room and will continue to monitor patient's overall status. Sepsis caused secondary to acute dilated Pyelitis/UTI with evidence of hydronephrosis secondary to ureteral calculus obstruction. 01/04/2024: Patient with short time frame of meeting septic shock last evening. Blood pressure dropped to 60s over 30s. She was able to rebound with IV fluid boluses. Continue changed antibiotic from Rocephin to meropenem to afford broader coverage. Continue IV fluids. See problem 2. For bacteremia. Will continue to monitor this patient her condition is currently guarded. 01/05/24: Vital signs are stable today she is afebrile, currently on room air. Continue meropenem Blood culture showing Gram-negative bacilli on preliminary read Will repeat blood cultures today Urine culture showing E coli on preliminary read, awaiting sensitivities (2) Bacteremia: Code(s): R78.81 - Bacteremia Status: Acute Assessment and Plan: 01/04/24: Blood cultures, 4/4 bottles growing Gram-negative bacilli. Continue meropenem pending culture results and sensitivity. Patient will need prolonged course of antibiotics. 01/05/24: Blood culture showing Gram-negative bacilli on preliminary read Will obtain other set of blood cultures today Continue IV antibiotics (3) Hydronephrosis concurrent with and due to calculi of kidney and ureter: Code(s): N13.2 - Hydronephrosis with renal and ureteral calculous obstruction Status: Acute Assessment and Plan: 01/04/24: As evidence prior CT scan demonstrating 8 mm proximal left ureteral stone Status post cystoscopy with left retrograde pyelogram and placement of stent by Dr. Landin Continue IV antibiotics of Rocephin 1 g Q 24 hours Continue IV fluids of normal saline at 125 mL/hour Continue to monitor results of cultures of blood and urine obtained both externally as well as intraoperatively P.r.n. pain meds P.r.n. antiemetics P.r.n. Tylenol Continue to monitor patient with trending labs and vital signs. 01/04/2024: As noted per urology note, patient will need definitive stone surgery with 1 of the [facility] urologist in a few weeks once her acute infection resolves. In the meantime we are continuing to treat her sepsis and bacteremia antibiotics in her wheezing urine cultures as well as blood culture identification and sensitivity. We will continue antiemetics, Tylenol and pain meds needed. 01/05/24: Urology following Awaiting culture results and sensitivities Continue meropenem Obtaining new blood cultures today (4) Pyelitis: Code(s): N12 - Tubulo-interstitial nephritis, not specified as acute or chronic Status: Acute Assessment and Plan: 01/04/24: see above plan (5) UTI (urinary tract infection): Qualifiers: Urinary tract infection type: acute cystitis Code(s): N39.0 - Urinary tract infection, site not specified Status: Acute Assessment and Plan: 01/04/24: see above plan (6) Left ureteral stone: Code(s): N20.1 - Calculus of ureter Status: Acute Assessment and Plan: 01/03/24: Status post cystoscopy with left retrograde pyelogram and placement and left sided stents Parham catheter is in place draining serosanguineous urine Urology followin
--- NOTE | 2024-01-05 09:30 | WPDUROPN2 ---
Progress Note: A&P Assessment and Plan (1) Sepsis: Qualifiers: Sepsis type: sepsis due to unspecified organism Sepsis acute organ dysfunction status: without acute organ dysfunction Qualified Code(s): A41.9 - Sepsis, unspecified organism Code(s): A41.9 - Sepsis, unspecified organism Status: Acute (2) Hydronephrosis concurrent with and due to calculi of kidney and ureter: Code(s): N13.2 - Hydronephrosis with renal and ureteral calculous obstruction Status: Acute (3) Left ureteral stone: Code(s): N20.1 - Calculus of ureter Status: Acute Plan POD#2 s/p L stent placement admitted with urosepsis and obstructing L proximal ureteral stone - continue meropenem; preliminary blood cultures x 2 with GNR, sensitivities pending - intraoperative urine culture with growth of E coli, sensitivities pending - continue samson for now in setting of sepsis to maximize urine drainage, will plan for Samson catheter removal prior to discharge - supportive care - will need definitive stone surgery as an outpatient following resolution of infection. She understands temporary nature of left ureteral stent Subjective Subjective Date/Time Seen: 01/05/24 09:30 Interval history: Barbie is feeling improved today. Overnight she had sweats and chills but remained afebrile. She reports poor appetite but has been able to tolerate her diet today. She endorses mild nausea but no vomiting. Denies flank pain. No issues with her Samson catheter which is draining clear, yellow urine. Review of Systems Review of Systems: All systems reviewed & are unremarkable except as noted in HPI and below Exam Narrative: General: Awake, alert, comfortable, no acute distress HEENT: Normocephalic, atraumatic, sclerae anicteric Respiratory: Normal respiratory effort, no accessory muscle use Abdomen: Nondistended, soft, nontender : Samson catheter draining clear yellow urine Skin: Normal coloration, warm and dry Neurologic: No focal neuro deficits noted Psychiatric: Appropriate mood and affect, judgment and insight intact Objective Data Vital Signs Vital Signs: Vital Signs - 24 hr 01/04/24 11:39 01/04/24 12:05 01/04/24 14:33 Temperature 98.4 F 98.1 F Pulse Rate 106 H 106 H 100 Respiratory Rate 30 H 24 H Blood Pressure 117/63 114/73 Pulse Oximetry 96 97 Oxygen Delivery 01/04/24 16:01 01/04/24 20:00 01/04/24 20:44 Temperature 97.8 F Pulse Rate 116 H 89 98 Respiratory Rate 16 Blood Pressure 117/82 Pulse Oximetry 99 Oxygen Delivery 01/04/24 22:07 01/04/24 22:13 01/04/24 23:00 Temperature 99.5 F 99.5 F 99.2 F Pulse Rate Respiratory Rate Blood Pressure Pulse Oximetry Oxygen Delivery 01/04/24 23:13 01/04/24 20:00 01/05/24 00:10 Temperature 99.2 F 98.8 F Pulse Rate 98 Respiratory Rate 16 Blood Pressure Pulse Oximetry 99 Oxygen Delivery Room Air 01/05/24 00:22 01/05/24 00:00 01/05/24 04:00 Temperature 98.8 F Pulse Rate 100 90 66 Respiratory Rate 16 Blood Pressure 120/67 Pulse Oximetry 95 Oxygen Delivery 01/05/24 04:41 01/05/24 08:00 Temperature 97.8 F 97.6 F Pulse Rate 81 77 Respiratory Rate 16 16 Blood Pressure 107/61 116/78 Pulse Oximetry 92 96 Oxygen Delivery Intake/Output Intake/Output: Intake & Output 01/02/24 01/03/24 01/04/24 01/05/24 23:59 23:59 23:59 23:59 Intake Total 4060 2740 500 Output Total 445 2800 825 Balance 3615 -60 -325 Meds/Results Medications: Active Medications Generic Name Dose Route Start Last Admin Trade Name Freq PRN Reason Stop Dose Admin Acetaminophen 1,000 mg 01/03/24 10:15 01/04/24 22:13 Acetaminophen 500 Mg Tablet PO 1,000 mg Q6H PRN Administration Mild Pain (1-3) or Fever Guaifenesin/Dextromethorphan 5 ml 01/04/24 21:55 01/04/24 22:13 Guaifenesin/Dextromethorphan 10 Ml Udc PO 5 ml Q4H PRN Administration Cough Lactated
[2024-01-05] MEDS: ONDANSETRON INJ 4 MG/2 ML VIAL IV PUSH ×2 (09:41→21:32)
[2024-01-05] MEDS: POTASSIUM CHLORIDE 20 MEQ ER TABLET 40 MEQ PO (09:45)
[2024-01-05] MEDS: LACTATED RINGERS 1,000 ML 100 ML IV CONT (09:46)
[2024-01-05] MEDS: ACETAMINOPHEN 500 MG TABLET 1000 MG PO (21:32)
[2024-01-06] VITALS: BP 121/75; PULSE 77; PULSE 83; RESP 18; TEMP 36.4; O2SAT 97
[2024-01-06 00:05] VITALS: BP 121/75; PULSE 83; RESP 18; TEMP 36.4; O2SAT 97
[2024-01-06 04:00] VITALS: BP 120/79; PULSE 60; PULSE 70; RESP 18; TEMP 35.6; O2SAT 93
[2024-01-06] MEDS: MEROPENEM 1 GM/NS 100 ML 1 GM/100 ML BAG IVPB (05:13)
[2024-01-06 06:25] LABS: Basophils Percent Auto 0.5 % (0.2-1.2); Eosinophils Absolute Auto 0.1 K/mm3 (0-0.3); Eosinophils Percent Auto 1.3 % (0-4.4); Hematocrit 30.4 % (37.0-47.0); Hemoglobin 10.1 g/dL (12.0-15.0); Immature Granulocyte Absolute 0.01 K/mm3 (0.00-0.031); Immature Granulocyte Percent A 0.3 % (0-0.5); Lymphocytes Absolute Auto 1.39 K/mm3 (0.9-3.2); Lymphocytes Percent Auto 35.4 % (18.3-44.2); Mean Corpuscular HGB Conc 33.2 g/dl (32-36); Mean Corpuscular Hemoglobin 29.2 pg (26-34); Mean Corpuscular Volume 87.9 fl (80-100); Mean Platelet Volume 9.7 fl (7.4-10.4); Monocytes Absolute Auto 0.7 K/mm3 (0.1-0.6); Monocytes Percent Auto 17.3 % (2.6-8.5); Neutrophils Absolute Auto 1.8 K/mm3 (1.3-6.7); Neutrophils Percent Auto 45.2 % (45.5-73.1); Platelet Count Result 209 k/mm3 (150-375); Red Blood Count 3.46 M/mm3 (4.2-5.4); Red Cell Distribution Width 13.2 % (11.5-14.5); White Blood Count 3.9 K/mm3 (4.5-10.0)
[2024-01-06 06:36] LABS: Alanine Aminotransferase 24 U/L (6-35); Albumin Level 2.7 g/dL (3.5-5.1); Alkaline Phosphatase 76 U/L (38-126); Anion Gap 5 mmol/L (8-16); Aspartate Amino Transferase 33 U/L (14-36); Bilirubin,Total 0.4 mg/dL (0.2-1.3); Blood Urea Nitrogen 6 mg/dL (7-17); Calcium 7.9 mg/dL (8.4-10.2); Carbon Dioxide 25 mmol/L (22-30); Chloride 105 mmol/L (98-107); Estimated CRCL calculation 104 ml/min; Estimated Glomerular Filt Rate > 60; Glucose 94 mg/dL (65-110); Magnesium 1.6 mg/dL (1.6-2.3); Sodium 135 mmol/L (137-145)
[2024-01-06 08:00] VITALS: BP 122/71; PULSE 77; PULSE 92; RESP 18; TEMP 36.4; O2SAT 97
[2024-01-06] MEDS: POTASSIUM CHLORIDE 20 MEQ ER TABLET 40 MEQ PO (08:17)
[2024-01-06] MEDS: ACETAMINOPHEN 500 MG TABLET 1000 MG PO (08:25)
--- NOTE | 2024-01-06 08:55 | P.PNIM_ITS ---
Progress Note: A&P Assessment and Plan (1) Sepsis: Qualifiers: Sepsis type: sepsis due to unspecified organism Sepsis acute organ dysfunction status: without acute organ dysfunction Qualified Code(s): A41.9 - Sepsis, unspecified organism Code(s): A41.9 - Sepsis, unspecified organism Status: Acute Assessment and Plan: 01/03/24: * Not meeting septic shock * As evidenced by febrile to 102.2, tachycardic in the 120s, known source of infection being urine. Lactic acid was not performed upon patient's arrival, in treatment has already begun. * Will continue with IV antibiotics, IV hydration which she received 2 L in emergency room and will continue to monitor patient's overall status. * Sepsis caused secondary to acute dilated Pyelitis/UTI with evidence of hydronephrosis secondary to ureteral calculus obstruction. 01/04/2024: * Patient with short time frame of meeting septic shock last evening. Blood pressure dropped to 60s over 30s. She was able to rebound with IV fluid boluses. Continue changed antibiotic from Rocephin to meropenem to afford broader coverage. Continue IV fluids. See problem 2. For bacteremia. Will continue to monitor this patient her condition is currently guarded. 01/05/24: * Vital signs are stable today she is afebrile, currently on room air. * Continue meropenem * Blood culture showing Gram-negative bacilli on preliminary read * Will repeat blood cultures today * Urine culture showing E coli on preliminary read, awaiting sensitivities 01/06/24: * (2) Bacteremia: Code(s): R78.81 - Bacteremia Status: Acute Assessment and Plan: 01/04/24: * Blood cultures, 4/4 bottles growing Gram-negative bacilli. * Continue meropenem pending culture results and sensitivity. * Patient will need prolonged course of antibiotics. 01/05/24: * Blood culture showing Gram-negative bacilli on preliminary read * Will obtain other set of blood cultures today * Continue IV antibiotics 01/06/24: * (3) Hydronephrosis concurrent with and due to calculi of kidney and ureter: Code(s): N13.2 - Hydronephrosis with renal and ureteral calculous obstruction Status: Acute Assessment and Plan: 01/04/24: * As evidence prior CT scan demonstrating 8 mm proximal left ureteral stone * Status post cystoscopy with left retrograde pyelogram and placement of stent by Dr. Landin * Continue IV antibiotics of Rocephin 1 g Q 24 hours * Continue IV fluids of normal saline at 125 mL/hour * Continue to monitor results of cultures of blood and urine obtained both externally as well as intraoperatively * P.r.n. pain meds * P.r.n. antiemetics * P.r.n. Tylenol * Continue to monitor patient with trending labs and vital signs. 01/04/2024: * As noted per urology note, patient will need definitive stone surgery with 1 of the [facility] urologist in a few weeks once her acute infection resolves. In the meantime we are continuing to treat her sepsis and bacteremia antibiotics in her wheezing urine cultures as well as blood culture identification and sensitivity. We will continue antiemetics, Tylenol and pain meds needed. 01/05/24: * Urology following * Awaiting culture results and sensitivities * Continue meropenem * Obtaining new blood cultures today 01/06/24: * (4) Pyelitis: Code(s): N12 - Tubulo-interstitial nephritis, not specified as acute or chronic Status: Acute Assessment and Plan: 01/04/24: * see above plan (5) UTI (urinary tract infection): Qualifiers: Ur
--- NOTE | 2024-01-06 08:55 | PM.IMPN ---
Progress Note: A&P Assessment and Plan (1) Sepsis: Qualifiers: Sepsis type: sepsis due to unspecified organism Sepsis acute organ dysfunction status: without acute organ dysfunction Qualified Code(s): A41.9 - Sepsis, unspecified organism Code(s): A41.9 - Sepsis, unspecified organism Status: Acute Assessment and Plan: 01/03/24: Not meeting septic shock As evidenced by febrile to 102.2, tachycardic in the 120s, known source of infection being urine. Lactic acid was not performed upon patient's arrival, in treatment has already begun. Will continue with IV antibiotics, IV hydration which she received 2 L in emergency room and will continue to monitor patient's overall status. Sepsis caused secondary to acute dilated Pyelitis/UTI with evidence of hydronephrosis secondary to ureteral calculus obstruction. 01/04/2024: Patient with short time frame of meeting septic shock last evening. Blood pressure dropped to 60s over 30s. She was able to rebound with IV fluid boluses. Continue changed antibiotic from Rocephin to meropenem to afford broader coverage. Continue IV fluids. See problem 2. For bacteremia. Will continue to monitor this patient her condition is currently guarded. 01/05/24: Vital signs are stable today she is afebrile, currently on room air. Continue meropenem Blood culture showing Gram-negative bacilli on preliminary read Will repeat blood cultures today Urine culture showing E coli on preliminary read, awaiting sensitivities 01/06/24: (2) Bacteremia: Code(s): R78.81 - Bacteremia Status: Acute Assessment and Plan: 01/04/24: Blood cultures, 4/4 bottles growing Gram-negative bacilli. Continue meropenem pending culture results and sensitivity. Patient will need prolonged course of antibiotics. 01/05/24: Blood culture showing Gram-negative bacilli on preliminary read Will obtain other set of blood cultures today Continue IV antibiotics 01/06/24: (3) Hydronephrosis concurrent with and due to calculi of kidney and ureter: Code(s): N13.2 - Hydronephrosis with renal and ureteral calculous obstruction Status: Acute Assessment and Plan: 01/04/24: As evidence prior CT scan demonstrating 8 mm proximal left ureteral stone Status post cystoscopy with left retrograde pyelogram and placement of stent by Dr. Landin Continue IV antibiotics of Rocephin 1 g Q 24 hours Continue IV fluids of normal saline at 125 mL/hour Continue to monitor results of cultures of blood and urine obtained both externally as well as intraoperatively P.r.n. pain meds P.r.n. antiemetics P.r.n. Tylenol Continue to monitor patient with trending labs and vital signs. 01/04/2024: As noted per urology note, patient will need definitive stone surgery with 1 of the [facility] urologist in a few weeks once her acute infection resolves. In the meantime we are continuing to treat her sepsis and bacteremia antibiotics in her wheezing urine cultures as well as blood culture identification and sensitivity. We will continue antiemetics, Tylenol and pain meds needed. 01/05/24: Urology following Awaiting culture results and sensitivities Continue meropenem Obtaining new blood cultures today 01/06/24: (4) Pyelitis: Code(s): N12 - Tubulo-interstitial nephritis, not specified as acute or chronic Status: Acute Assessment and Plan: 01/04/24: see above plan (5) UTI (urinary tract infection): Qualifiers: Urinary tract infection type: acute cystitis Code(s): N39.0 - Urinary tract infection, site not specified Status: Acute Assessment and Plan: 01/04/24: see above plan (6) Left ureteral stone: Code(s): N20.1 - Calculus of ureter Status: Acute Assessment and Plan: 01/03/24: Status post cystoscopy with left retrograde pyelogram and placement and left sided stents Parham catheter is in place d
[2024-01-06 12:00] VITALS: BP 114/61; PULSE 83; PULSE 88; RESP 18; TEMP 36.4; O2SAT 97
--- NOTE | 2024-01-06 12:19 | WPDUROPN2 ---
Progress Note: A&P Assessment and Plan (1) Sepsis: Qualifiers: Sepsis acute organ dysfunction status: without acute organ dysfunction Sepsis type: sepsis due to unspecified organism Qualified Code(s): A41.9 - Sepsis, unspecified organism Code(s): A41.9 - Sepsis, unspecified organism Status: Acute (2) Hydronephrosis concurrent with and due to calculi of kidney and ureter: Code(s): N13.2 - Hydronephrosis with renal and ureteral calculous obstruction Status: Acute (3) Left ureteral stone: Code(s): N20.1 - Calculus of ureter Status: Acute (4) Bacteremia: Code(s): R78.81 - Bacteremia Status: Acute Plan POD#3 s/p L stent placement admitted with urosepsis and obstructing L proximal ureteral stone. She is clinically improving, remains afebrile, WBC and creatinine have normalized - continue cefdinir; urine culture and 2/2 blood cultures with growth of pansensitive E. coli - repeat blood cultures collected on 01/05/24 are negative to date - anticipate she can return home on culture appropriate PO antibiotics x2 weeks if repeat blood cultures demonstrate resolution of bacteremia - plan for samson removal today given overall clinical improvement. Monitor urine output to ensure she is able to void following samson removal - supportive care - will need definitive stone surgery as an outpatient following resolution of infection. She understands temporary nature of left ureteral stent and need for appropriate follow up Subjective Subjective Date/Time Seen: 01/06/24 12:19 Interval history: Barbie is feeling improved today. She has no pain. Denies nausea, vomiting, fever, or chills. She continues to endorse poor appetite but is tolerating her diet. Reports no issues with samson catheter which is draining clear yellow urine. Review of Systems Review of Systems: All systems reviewed & are unremarkable except as noted in HPI and below Exam Narrative: General: Awake, alert, comfortable, no acute distress HEENT: Normocephalic, atraumatic, sclerae anicteric Respiratory: Normal respiratory effort, no accessory muscle use Abdomen: Nondistended, soft, nontender : Samson catheter draining clear yellow urine Skin: Normal coloration, warm and dry Neurologic: No focal neuro deficits noted Psychiatric: Appropriate mood and affect, judgment and insight intact Objective Data Vital Signs Vital Signs: Vital Signs - 24 hr 01/05/24 16:00 01/05/24 16:00 01/05/24 20:00 Temperature 97.6 F 98.8 F Pulse Rate 97 80 91 Respiratory Rate 16 20 Blood Pressure 130/72 119/73 Pulse Oximetry 94 96 Oxygen Delivery 01/05/24 20:00 01/05/24 21:30 01/06/24 00:05 Temperature 97.5 F L Pulse Rate 96 83 Respiratory Rate 18 Blood Pressure 121/75 Pulse Oximetry 97 Oxygen Delivery Room Air 01/06/24 00:00 01/06/24 00:00 01/06/24 04:00 Temperature 97.5 F L Pulse Rate 83 77 70 Respiratory Rate 18 Blood Pressure 121/75 Pulse Oximetry 97 Oxygen Delivery 01/06/24 04:00 01/06/24 08:00 01/06/24 08:00 Temperature 96.1 F L 97.5 F L Pulse Rate 60 92 Respiratory Rate 18 18 Blood Pressure 120/79 122/71 Pulse Oximetry 93 97 Oxygen Delivery Room Air Intake/Output Intake/Output: Intake & Output 01/03/24 01/04/24 01/05/24 01/06/24 23:59 23:59 23:59 23:59 Intake Total 4060 2740 3592 560 Output Total 445 2800 3025 600 Balance 3615 60 567 -40 Meds/Results Medications: Active Medications Generic Name Dose Route Start Last Admin Trade Name Freq PRN Reason Stop Dose Admin Acetaminophen 1,000 mg 01/03/24 10:15 01/06/24 08:25 Acetaminophen 500 Mg Tablet PO 1,000 mg Q6H PRN Administration Mild Pain (1-3) or Fever Cefdinir 300 mg 01/06/24 21:00 Cefdinir 300 Mg Capsule PO 01/10/24 21:00 Q12HR BRANDO Guaifenesin/Dextromethorphan 5 ml 01/04/24 21:55 01/04/24 22:13 Guaifenesin/Dextromethorphan 10 Ml Udc PO 5 m
[2024-01-06] MEDS: AMOXICILLIN/CLAVULANATE K 875-125 MG TAB 1 TABLET PO (13:53)
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
== END 2024-01-06 15:35 | disposition home or self-care (01) | DRG 720 ==
LOC: ANHED 01-03 07:04 → ANHSURGERY 01-03 07:37 → ANHED 01-03 09:37 → ANHSURGERY 01-03 09:37 → ANH2MED 01-03 09:38
PROVIDERS: Nurse Practitioner Acute Care; Nurse Practitioner Adult Health; Physician Assistant; Urology; Admitting Provider Internal Medicine; Emergency Provider Emergency Medicine; Visit Provider Internal Medicine
PROC: 0T778DZ Dilation of Left Ureter with Intraluminal Device, Via Natural or Artificial Opening Endoscopic (ICD-10-PCS; CPT 52352; principal; 2024-01-03 08:30)
DX: A41.51 Sepsis due to Escherichia coli [E. coli] (principal); N13.6 Pyonephrosis; R65.21 Severe sepsis with septic shock
CPT/HCPCS: 36415; 74177; 74420; 80048; 80053; 81001; 81025; 83605; 83735; 85025; 85027; 87040; 87086; 87186; 93005; 96361; 96374; 96375; 96376; 99285; A9270; C1769; C2617; G0378; J0330; J0696; J0780; J1200; J1741; J2185; J2270; J2405; J2704; J3010; J7030; J7120; Q9966; Q9967

== ENCOUNTER 2024-01-28 12:27 | Outpatient (CLI) | payer BC, SELFPAY ==
[2024-01-28 13:04] LABS: Appearance Urine Clear (Clear); Bacteria Urine Rare /hpf; Bilirubin Urine Negative (Negative); Blood Urine 2+ (Negative); Color Urine Yellow (Yellow); Glucose Urine UA Negative (Negative); Ketones Urine Negative (Negative); Leukocyte Esterase Ur 2+ LEU/UL (Negative); Nitrate Urine Negative (Negative); Non Pathogenic Casts 0-2; Protein Urine Trace mg/dL (Negative); RBC Urine 21-50 /hpf (0-2); Specific Grav Ur 1.016 (1.001-1.035); Squamous Epithelial Cell Urine Occasional /hpf (Few); Urobilinogen Urine 0.2 mg/dL (<2.0); WBC Urine 21-50 /hpf; pH Urine 7.5 (5.0-9.0)
[2024-01-28 13:07] LABS: Add Urine Microscopic? YES
[2024-01-28 13:22] LABS: Prothrombin Time 13.2 Seconds (11.1-14.7)
[2024-01-28 13:23] LABS: Partial Thromboplastin Time 29.9 SECONDS (22.3-36.8)
== END 2024-01-28 12:28 | disposition home or self-care (01) ==
LOC: ANHSURGERY 12:33
PROVIDERS: Visit Provider Urology
DX: Z01.818 Encounter for other preprocedural examination (principal); N20.0 Calculus of kidney
CPT/HCPCS: 36415; 81001; 85610; 85730; 87086

== ENCOUNTER 2024-01-30 00:41 | Day surgery (SDC) | payer BC, SELFPAY ==
[2024-01-28 09:59] VITALS: BMI 19.1
--- NOTE | 2024-01-28 10:06 | PC.NURSE ---
Report to the Outpatient Waiting Room, entrance under the green pavilion located off [facility], at time 1:00 on date 01/30/24. Planned Procedure Time: 3:00. Time changes happen often and if your time is changed the preop area will call you the afternoon before. - You and your visitor will be asked to self-screen and do not enter if you have any COVID symptoms. - A mask is optional within the hospital at this time. Patients may have clear liquids (water, carbonated beverages, clear teas, apple juice) until 3 hours prior to surgery (12:00) with a maximum of 20 ounces. - No food from midnight until time of surgery Take the following medications with a SIP of water the morning of surgery: NONE DO NOT STOP ANY OF YOUR OTHER PRESCRIPTION MEDICATIONS PRIOR TO SURGERY ?EXCEPT THE FOLLOWING Medications to discontinue per physician: IBUPROFEN Date to take last dose: NO MORE UNTIL AFTER SURGERY Please no make-up, nail japanese, hairspray, perfume, deodorant, or body powder the day of surgery. No jewelry (including any body piercings) or valuables the day of surgery, leave them at home. Please take a shower or bath the night before, or the morning of, surgery with an antibacterial soap. Wear comfortable, loose fitting clothing. - Jewelry must be removed prior to entering the operating room. Rings and piercings that are not removed may be cut off. - The hospital will not accept responsibility for valuables. - Please leave all valuables, including medications, at home the day of surgery. If you are going home after surgery, a licensed driver education road instructor must drive you home. - NO public transportation without another adult if you receive anesthesia. - We recommend that an adult stay with you for 24 hours following discharge. - We also recommend that you do not drive, make important decision, drink alcoholic beverages, or take any drugs that were not prescribed by your health care provider for at least 24 hours after your discharge time. Follow any additional instructions given to you from your surgeon. If you or anyone in your household have experienced Covid symptoms in the past week, please notify your surgeon or the nurse liaison at the phone number below for possible testing. Telephone instructions given to PT - SANDRA TAVERAS and asked if any additional questions and then verbalized understanding. Patient advised to call surgeon office or pre surgery nurse liaison [phone] if any additional questions.
--- NOTE | 2024-01-29 13:52 | WPDANESEPPF ---
Anes - Initial Pre Proc Eval Procedure: Operation Date: 01/30/24 15:00 Proposed Procedures p Left Extracorporeal Shock Wave Lithotripsy - Connor Paul MD s Possible Cystoscopy, Possible Left Stent Removal/Replacement - Connor Paul MD Date/Time: 01/29/24 13:52 Surgeon: Connor Paul MD Pre Op Diagnosis: left kidney stone Patient Data Age: 29 Gender: F Height: 1.63 m Weight: 50.35 kg Allergies Allergy/AdvReac Type Severity Reaction Status Date / Time No Known Allergies Allergy Verified 01/30/24 12:16 Home Medications Medication Instructions Recorded Confirmed Type ibuprofen 600 mg tablet 600 mg PO QID PRN Pain 01/28/24 01/28/24 History Patient hx anesthesia problems: none Family hx anesthesia problems: none Results Review: All pre-operative results and documents have been reviewed as part of the pre-operative evaluation. COUNT INCLUDES THE [facility] Past Medical History Medical History Anxiety Bacteremia Pyelitis Sepsis Smoker Surgical History Surgical History History of lumbar surgery Social History Social History Smoking status: Current every day smoker Tobacco type: e-cigarettes/vaping Alcohol intake: current Alcohol use details: NONE SINCE KIDNEY STONE Substance use: never Substance use type: does not use Do You Feel Safe in your Home?: Yes Lack of Transportation: No Lack of Food: Never True Current Housing: I Have Housing Concerned About Future Housing: No Difficulty Paying Gas/Electric Bills: No Difficulty Paying for Meds: No Currently Unemployed: No Education: High School Diploma/GED Difficulty w/ Childcare or Family Care: No Living arrangements: with friend(s) Additional living arrangements comments: BOYFRIEND Gender identity (if verbalized by the patient): Female Spiritual care concerns: No Anes - Eval Final PreProcedure Day of Procedure 01/29/24 13:52 Patient weight: normal Heart: regular rate and rhythm Lungs: clear to auscultation Airway: Mallampati scale class II Neurological: alert and oriented Last oral intake: >/= 8 hours ASA classification: II Emergent: no Anesthetic plan: proceed Anesthesia type and monitoring: general LMA and standard monitoring Results Review: All pre-operative results and documents have been reviewed as part of the pre-operative evaluation. Informed Consent: The patient's anesthetic plan and its attendant risks and benefits were discussed with the patient/family/POA. Questions were solicited and answers provided to the satisfaction of the patient/family/POA.
[2024-01-30] VITALS (7 sets, daily range): BP systolic 90–114; BP diastolic 54–68; PULSE 61–112; RESP 14–18; TEMP 36.1–36.7; O2SAT 95–100
--- NOTE | ~2024-01-30 | XR_ITS ---
EXAMINATION: XR abdomen/kub 1V DATE: 01/30/2024 12:32 INDICATION: Urolithiasis for planned shockwave lithotripsy TECHNIQUE: A supine view of the abdomen on 2 radiographs was obtained. COMPARISON: 01/03/2024 FINDINGS: There is a left internal ureteral stent in expected position with loops formed over the expected loca tion of the bladder and an upper pole calyx of the left kidney. 6 mm stone projects over the left santiago al hilum likely representing the stone previously seen at the ureteropelvic junction. There is a new 2 mm stone along side the stent in the region of the distalmost left ureter/ureterovesicular junction which lies cephalad to 4 unchanged small phleboliths at the more caudal pelvis from a 3 on the right and one on the left. Normal bowel gas pattern with moderate amount of colonic stool. Thoracolumbar i nstrumented posterior spinal fusion with bilateral vertical bonita and pedicle screw fixation beginning caudally at L3 and extending beyond the cephalad margin of the [id number] which is at the level of the T12-L1 disc space. IMPRESSION: 1. Left-sided urolithiasis with 6 mm stone at the left renal pelvis and 2 mm stone along side a left internal ureteral stent at the level of the distalmost left ureter/ureterovesicular junction. Reviewed, dictated and finalized at location [facility] IMPRESSION: 1. Left-sided urolithiasis with 6 mm stone at the left renal pelvis and [address] one along side a left internal ureteral stent at the level of the distalmost le ft ureter/ureterovesicular junction.
--- NOTE | 2024-01-30 06:25 | WPDHPUPDATE1 ---
History and Physical Update Update Date/Time: 01/30/24 06:25 History and Physical has been reviewed, including an updated exam of the patient. There are NO changes in the patient's condition. Risks, benefits, and alternatives have been discussed and questions answered. Patient agrees to proceed with procedure.
[2024-01-30] MEDS: LACTATED RINGERS 1,000 ML 30 ML IV CONT ×2 (12:54→14:55)
[2024-01-30] MEDS: ceFAZolin 2 GM/D5W 50 ML 2 GM/50 ML BAG IVPB (13:50)
--- NOTE | 2024-01-30 14:14 | W.PM.PROC2 ---
Procedure Note - Detailed Date of Procedure 01/30/24 Pre-op Diagnosis Left kidney stone, possible small left ureteral stone Post-op Diagnosis Same Procedure Performed 1. Cystoscopy with left ureteral stent removal. 2. Left ureteroscopy. 3. Left ESWL Surgeon Connor Paul MD Anesthesia MAC Description of Procedure Patient is brought to the operative suite she has prepped draped in routine sterile fashion while in dorsal lithotomy position. Cystoscopy was undertaken with a 19 F rigid cystoscope. Bladder neck urethra normal. Bladder mucosa is normal no intravesical neoplasm. The tip of the indwelling stent is grasped and brought to the external urethral meatus. A 0.5 in glidewire was advanced through the stent into the left renal pelvis. Ureteroscopy was undertaken to the left iliac vessels using a short tapered semi-rigid ureteral scope. There are no distal ureteral calculi. I opted to leave the ureteral stent out. She was then repositioned in the supine position. Focal point of the Lithotripter was placed at her 8 mm left renal calculus and a total of 2500 shocks were delivered at a power setting 4. Patient tolerated the procedure was taken recovery in good condition. Drains No Packing No Pathology None sent Complications No immediate complications
[2024-01-30] MEDS: fentaNYL CITRATE INJ (*CRX) 100 MCG/2 ML VIAL 25 MCG IV PUSH ×4 (15:10→15:21)
[2024-01-30] MEDS: oxyCODONE HCL (*CRX) 5 MG TAB IR PO (16:15)
== END 2024-01-30 17:08 | disposition home or self-care (01) ==
PROVIDERS: Visit Provider Urology
PROC: (CPT 50590; principal; 2024-01-30 15:00)
PROC: (CPT 52352; 2024-01-30 15:00)
DX: N20.0 Calculus of kidney (principal); F17.290 Nicotine dependence, other tobacco product, uncomplicated
CPT/HCPCS: 50590; 52310; 74018; A9270; C1769; J0690; J1100; J2250; J2405; J2704; J3010; J7030; J7120

== ENCOUNTER 2024-02-06 09:02 | Outpatient (CLI) | payer BC, SELFPAY ==
--- NOTE | ~2024-02-06 | XR_ITS ---
Supine and upright views of the abdomen Clinical history: Renal stone Findings: Bowel gas pattern is nonspecific. No evidence for obstruction or free air. No abnormal mass lesion or calcification is seen. Extensive thoracolumbar spinal fixation hardware present. Impression: No definite renal stone. Probable calcified pelvic phleboliths. Thoracolumbar spinal fixation hardware. Reviewed, dictated and finalized at [facility]. Impression: No definite renal stone. Probable calcified pelvic phleboliths. Thoracolumbar spinal fixation hardware.
== END 2024-02-06 09:03 | disposition home or self-care (01) ==
LOC: ANHIMG 09:04
PROVIDERS: Visit Provider Urology
DX: N20.0 Calculus of kidney (principal); Z98.1 Arthrodesis status
CPT/HCPCS: 74018